=== PATIENT | female | born 1975 | race Caucasian/White ===

== ENCOUNTER → 2017-07-24 | Outpatient (CLI) | payer BC | LOC: MC.RAD 08:36 | DX: Z12.31 Encounter for screening mammogram for malignant neoplasm of breast (principal) ==

== ENCOUNTER → 2018-12-17 | Outpatient (CLI) | payer BC | LOC: MC.RAD 08:20 | DX: Z12.31 Encounter for screening mammogram for malignant neoplasm of breast (principal) ==

== ENCOUNTER → 2019-08-08 | Outpatient (CLI) | payer BC | LOC: MC.RAD 08:08 | DX: N63.10 Unspecified lump in the right breast, unspecified quadrant (principal) | CPT/HCPCS: G0279 ==

== ENCOUNTER → 2019-08-12 | Outpatient (CLI) | payer BC | LOC: MC.RAD 08:55 | DX: N63.13 Unspecified lump in the right breast, lower outer quadrant (principal); Z98.82 Breast implant status | CPT/HCPCS: 30634 ==

== ENCOUNTER → 2019-08-25 | Outpatient (CLI) | payer BC | LOC: MC.RAD 12:40 | DX: C50.911 Malignant neoplasm of unspecified site of right female breast (principal); Z98.890 Other specified postprocedural states | CPT/HCPCS: G0279 ==

== ENCOUNTER 2019-08-29 06:56 | Day surgery (SDC) | payer BC ==
[2019-08-29] VITALS (7 sets, daily range): BP systolic 111–131; BP diastolic 69–78; PULSE 51–60; TEMP 97.4–97.7
[~2019-08-29] VITALS: Ht 175.3 cm; Wt 84.8 kg
[2019-08-29] MEDS ORDERED: VITAMIN C500 MG PO (07:49)
[2019-08-29] MEDS ORDERED: TYLENOL 500MG500 MG PO (07:49)
[2019-08-29] MEDS ORDERED: PHARMASSURE ZIN50 MG PO (07:49)
--- NOTE | 2019-08-29 09:30 | NUR ---
The patient was taken via cart back to radiology to have further imaging done of her sentinel lymph nodes. The patient's is going to wait for her in [place] [facility] to return. Will continue to monitor the patient when she returns to the unit.
--- NOTE | 2019-08-29 10:13 | NUR ---
The patient has returned to [facility] from radiology and has completed her imaging for surgery. The patient's remains at her bedside at this time. Call light is within reach. Will continue to monitor the patient.
[2019-08-29] MEDS ORDERED: NORCO 325 MG-51 TAB PO (13:00)
--- NOTE | 2019-08-29 13:30 | NUR ---
The patient arrived back to [facility] from the recovery room at this time. The patient appears alert and oriented at this time. The patient reports discomfort mainly in her back from her position and laying on the cart. Post operative vital signs were started at this time. The patient's dressings to her right breast appear clean, dry, and intact. The patient has some water at her bedside and denies wanting anything further at this time. Family brought back to be at her bedside. Call light is within reach. Will continue to monitor the patient.
--- NOTE | 2019-08-29 13:45 | NUR ---
The patient is lying down in bed and appears to be resting comfortably on the cart with her eyes closed. The nurse assisted the patient to raise the head of her bed and adjust her position. The patient's family remains at her bedside at this time. The patient denies wanting anything to eat or drink at this time. Will continue to monitor the patient.
--- NOTE | 2019-08-29 14:00 | NUR ---
The patient to be resting comfortably on the cart at this time. The patient's vital signs appear stable. Call light remains within reach. Will continue to monitor the patient.
--- NOTE | 2019-08-29 14:15 | NUR ---
The patient agrees to try some applesauce at this time. The nurse assisted the patient to sit up in bed and she states that her back feels "much better". Family remains at her bedside. Call light is within reach. Will continue to monitor the patient.
--- NOTE | 2019-08-29 14:50 | NUR ---
The patient ambulated to the bathroom with the stand by assistance of one nurse and appeared to tolerate the activity well. The patient voided without difficulty. The nurse instructed the patient that she has met all requiurements for discharge and to get dressed and notify the staff when she is ready to review her discharge paperwork. The patient's is at her bedside to assist her to get dressed.
--- NOTE | 2019-08-29 15:15 | NUR ---
Discharge instructions were reviewed with the patient and her at this time. They both verbalized understanding and have no questions for the nurse at this time. The patient's IV to her left hand was removed and a pressure dressing was applied to the site. The patient is dressed and ready to be escorted out.
--- NOTE | 2019-08-29 15:25 | NUR ---
The patient was escorted out via wheelchair to a private vehicle by CHACHO Mario. The patient's belongings and discharge paperwork were sent with her. The audrey's is present to drive her home.
== END 2019-08-29 15:25 | disposition home or self-care (01) ==
LOC: SDCO 06:56
DX: C50.911 Malignant neoplasm of unspecified site of right female breast (principal); N95.2 Postmenopausal atrophic vaginitis; Z80.3 Family history of malignant neoplasm of breast; Z80.42 Family history of malignant neoplasm of prostate; Z90.710 Acquired absence of both cervix and uterus
CPT/HCPCS: A9541; J0690; J1100; J1885; J2250; J2405; J2704; J2795; J3010; J7120; Q9968

== ENCOUNTER → 2020-08-30 | Outpatient (CLI) | payer BC ==
[~2020-08-30] MED LIST: NORCO 325 MG-51 TAB PO; PHARMASSURE ZIN50 MG PO; TYLENOL 500MG500 MG PO; VITAMIN C500 MG PO
== END ==
LOC: MC.RAD 12:59
DX: Z85.3 Personal history of malignant neoplasm of breast (principal); Z98.890 Other specified postprocedural states; Z92.3 Personal history of irradiation; Z98.82 Breast implant status

== ENCOUNTER → 2021-08-31 | Outpatient (CLI) | payer BC | LOC: MC.RAD 10:11 | DX: Z12.31 Encounter for screening mammogram for malignant neoplasm of breast (principal); Z85.3 Personal history of malignant neoplasm of breast; Z98.890 Other specified postprocedural states; Z92.3 Personal history of irradiation ==

== ENCOUNTER → 2023-12-12 | Outpatient (CLI) | payer BC | LOC: MC.RAD 13:45 | DX: Z12.31 Encounter for screening mammogram for malignant neoplasm of breast (principal); C50.911 Malignant neoplasm of unspecified site of right female breast; R23.4 Changes in skin texture; N64.59 Other signs and symptoms in breast ==